=== PATIENT | male | born 1990 | race Caucasian/White ===

== ENCOUNTER 2016-07-25 22:28 | Emergency (ER) | payer OTHER ==
[~2016-07-25] VITALS: Ht 182.9 cm; Wt 82.4 kg
[2016-07-25 22:31] VITALS: TEMP 36.6; Ht 182.9 cm; Wt 82.4 kg
[2016-07-25] MEDS ORDERED: [UNRECOGNIZED DRUG - CODE] PO (22:44)
[2016-07-25] MEDS ORDERED: AMOX500C3 PO (22:55)
[2016-07-25] MEDS ORDERED: AMOXICILLIN 250 MG CAP PO ONE (23:00)
[2016-07-25] MEDS ORDERED: BENZOCAINE OT ONE (23:00)
[2016-07-25] MEDS ORDERED: ANTIPYRINE OT ONE (23:00)
--- NOTE | 2016-07-25 23:14 | EMERGENCY ROOM VISIT NOTE ---
ED Visit Note First contact with patient: 22:42 CHIEF COMPLAINT: Left ear pain HISTORY OF PRESENT ILLNESS: This 26-year-old white male has had left ear pain since earlier this evening. Symptoms developed acutely just 2-3 hours ago. He has been dealing with a chest cold and has been taking Mucinex daily. There is no current cough and no hoarseness. He denies any sore throat or ear pain prior to tonight. No other upper respiratory symptoms. No decrease in fluid intake. No fevers, chills, sweats, nausea, vomiting, or diarrhea. No difficulty breathing. No trauma. Pain is 8/10. No treatment yet. No recent history of significant ear infections. No involvement of the right ear. REVIEW OF SYSTEMS: HEENT: No visual problems, hearing loss, or tinnitus. There is no difficulty swallowing and no oral lesions are present. LYMPH: No adenopathy. PULMONARY: No cough, shortness of breath, sputum production or hemoptysis. CARDIOVASCULAR: No palpitations, shortness of breath or peripheral edema. GASTROINTESTINAL: No diarrhea, constipation, nausea, vomiting, or abdominal pain. GENITOURINARY: No dysuria, frequency, urgency or nocturia. NEUROLOGIC: No weakness, muscle tenderness, epilepsy or history of neurological problems. MUSCULOSKELETAL: No history of joint tenderness/swelling. No history of arthritis or arthralgias. SKIN: No rashes or lesions. ENDOCRINE: No history of diabetes, thyroid disorders, or abnormal hair growth. PMH: Supplemental sheet was reviewed and signed. Previous surgeries: None Medical history: Benign Allergies: NKDA Current Medications: None Family History: Noncontributory. Parents are living. SOCIAL HISTORY: Patient lives at home. Employed. No tobacco use, occasional EtOH use. Single. PHYSICAL EXAM: Vital Signs: Afebrile. Reviewed and filed in patient's chart. SKIN: Warm and dry with good turgor. No rashes or lesions. No ecchymosis or erythema. The patient is not diaphoretic. No abrasions. HEENT: Normocephalic atraumatic. Eyes PERRLA, EOMI. No conjunctiva or scleral injection. Ears TMs intact bilaterally. Left TM with erythema and bulging. No hemotympanum. Right ear has a normal TM without redness or bulging. Canals are patent. Nares patent bilaterally without turbinate enlargement. No significant drainage. No epistaxis. Oropharynx without erythema or exudate. Uvula midline, oral mucosa moist. No lesions present. Lymphatics are palpated without anterior or posterior chain enlargement or tenderness. Heart: Heart RRR. No MGR. Peripheral pulses are 2+. LUNGS: Clear to auscultation bilaterally and breath sounds equal. No wheezes, rales, or rhonchi. DIAGNOSIS: Acute left ear otitis media DISCHARGE INSTRUCTIONS & TREATMENT: The was patient was educated regarding today's findings. Conservative care measures were discussed. They were prescribed Amoxicillin, 500 mg 3 times a day for 10 days. First dose was given in the ED. Use Tylenol 650 mg and ibuprofen 600 mg every 6 hours as needed for fever or discomfort. Maintain hydration. He was given drops of Auralgan in the ED. Continue using them 2 drops every 2 hours as needed for severe pain. I would like him to obtain Mucinex D to replace his Mucinex decongestant. Otitis media handout was provided. Follow-up with his PCP in approximately one week for a recheck. Return to the ER for any acute changes. Current/Historical Medications Scheduled Amoxicillin (Amoxil), 500 MG PO TID Scheduled PRN Guaifenesin ([facility] Chest Congestion Reli), 1 TAB PO Q6 PRN for CHEST CONGESTION Allergies Coded Allergies: No Known Allergies (Unverified , 07/25/16) Vital Signs Date Time Temp Pulse Resp B/P (MAP) Pulse Ox O2 Delivery O2 Flow Rate FiO2 07/25/16 22:31 36.6 89 16 129/71 98 Room Air Departure Information Impression Primary Impression: Left otitis media with effusion Dispostion Home / Self-Care Prescriptions Amoxicillin (AMOXIL) 500 Mg Cap 500 MG PO TID, #30 CAP Prov: Chris De Leon,P.A. 07/25/16 Forms WORK / SCHOOL INSTRUCTIONS, HOME CARE DOCUMENTATION FORM, MOTRIN USE, TYLENOL USE, IMPORTANT VISIT INFORMATION Patient Instructions My [facility], ED Otitis Media Acute Adult Additional Instructions Tylenol 650 mg every 6 hours and Motrin 600 mg every 6 hours as needed for discomfort Amoxil 1 pill 3 times a day 10 days Mucinex D daily as directed on package Auralgan solution 2 drops in the ear every 2 hours as needed for discomfort
[2016-07-25 23:36] VITALS: BP 120/75; PULSE 86; O2SAT 96
== END 2016-07-25 23:38 | disposition home or self-care (01) ==
LOC: C.EDB 22:29
DX: H65.192 Other acute nonsuppurative otitis media, left ear (principal)